=== PATIENT | female | born 1950 | race Caucasian/White ===

== ENCOUNTER 2020-08-18 10:00 | Outpatient (RCR) | payer MEDICARE, SELFPAY | END 2020-08-18 13:12 | disposition home or self-care (01) | LOC: CHSSENLIFE 10:00 | PROVIDERS: PCP Internal Medicine Geriatric Medicine; Visit Provider Psychiatry & Neurology Psychiatry | DX: F33.2 Major depressive disorder, recurrent severe without psychotic features (principal) | CPT/HCPCS: 90792; 90837; 90853; 99213; G0463 ==

== ENCOUNTER 2021-10-23 17:47 | Emergency (ER) | payer MEDICARE, SELFPAY ==
--- NOTE | ~2021-10-23 | CT_ITS ---
EXAMINATION: CT abdomen pelvis wo con DATE: 10/23/2021 18:37 INDICATION: Left flank pain. TECHNIQUE: Computed tomography (CT) of the abdomen and pelvis was performed without intravenous contr ast. Automated exposure control and iterative reconstruction technique were employed. The dose-length product was 512.91 mGy-cm. COMPARISON: None. FINDINGS: The visualized portions of the lung bases demonstrate mild atelectasis. There is a 5 mm nod ule in left lower lobe, likely benign. Calcified right lung nodules are consistent with old granuloma tous disease. No pleural effusion. The heart size is normal. No pericardial effusion. There is a smal l sliding hiatal hernia. Calcifications in the liver and spleen are consistent with old granulomatous disease. There are cysts in the liver measuring up to 12 mm. There are gallstones in the gallbladder , which is normal in size. The pancreas, adrenal glands, and kidneys are normal. There is no urolithi asis. There are no dilated loops of bowel. There are changes of appendectomy. There are no pathologic ally enlarged lymph nodes. There is no free intraperitoneal fluid. There is mild thoracolumbar spondy losis. IMPRESSION: 1. Small sliding hiatal hernia. Reviewed, dictated and finalized at location E.
--- NOTE | ~2021-10-23 | XR_ITS ---
EXAMINATION: XR chest 1V portable INDICATION: Right flank pain TECHNIQUE: Portable AP chest at 2019 hours COMPARISON: None available FINDINGS: There is mild atelectasis of the left lung base. There is no pleural effusion or pneumothor ax. The cardiomediastinal silhouette is normal. IMPRESSION: 1. Mild atelectasis of the left lung base. Reviewed, dictated and finalized at location F.
[2021-10-23 17:50] VITALS: BP 158/88; PULSE 83; RESP 20; TEMP 36.4; O2SAT 95
--- NOTE | 2021-10-23 17:55 | ECG_ITS ---
Measurements Intervals [place] Rate: 56 P: 91 [place]: 166 QRS: 50 QRSD: 97 T: 47 QT: 432 QTc: 417 Interpretive Statements SINUS BRADYCARDIA MINIMAL ST DEPRESSION [0.025+ mV ST DEPRESSION] NO PREVIOUS ECG AVAILABLE FOR COMPARISON Electronically Signed On 10-23-2021 21:16:39 CDT by Yanna Tillman MD
[2021-10-23 18:10] VITALS: BP 155/60; PULSE 61; RESP 16; TEMP 36.4; O2SAT 99
[2021-10-23 18:16] VITALS: BP 137/84; PULSE 60; RESP 12; O2SAT 97
[2021-10-23 18:16] LABS: Basophils Absolute Auto 0.1 K/mm3 (0.0-0.1); Basophils Percent Auto 0.9 % (0.2-1.2); Eosinophils Absolute Auto 0.2 K/mm3 (0-0.3); Eosinophils Percent Auto 2.4 % (0-4.4); Hematocrit 40.5 % (37.0-47.0); Hemoglobin 13.3 g/dL (12.0-15.0); Immature Granulocyte Absolute 0.02 K/mm3 (0.00-0.031); Immature Granulocyte Percent A 0.3 % (0-0.5); Lymphocytes Absolute Auto 3.26 K/mm3 (0.9-3.2); Lymphocytes Percent Auto 41.4 % (18.3-44.2); Mean Corpuscular HGB Conc 32.8 g/dl (32-36); Mean Corpuscular Hemoglobin 30.2 pg (26-34); Mean Corpuscular Volume 91.8 fl (80-100); Monocytes Absolute Auto 0.7 K/mm3 (0.1-0.6); Monocytes Percent Auto 9.4 % (2.6-8.5); Neutrophils Absolute Auto 3.6 K/mm3 (1.3-6.7); Neutrophils Percent Auto 45.6 % (45.5-73.1); Platelet Count Result 272 k/mm3 (150-375); Red Blood Count 4.41 M/mm3 (4.2-5.4); Red Cell Distribution Width 13.2 % (11.5-14.5); White Blood Count 7.9 K/mm3 (4.5-10.0)
--- NOTE | 2021-10-23 18:22 | ED.GENADULT ---
HPI - General Adult General Chief complaint: Back Pain/Injury Stated complaint: back pain Time Seen by Provider: 10/23/21 17:55 Source: RN notes reviewed History of Present Illness HPI narrative: Patient presents emergency department from home for right flank pain. Patient states pain began suddenly approximately 4:30 PM today pain is located the right flank and radiates around the right side of the abdomen. Described as sharp and stabbing. Associate with nausea vomiting. Denies any fevers or chills, chest pain, shortness of breath diarrhea or any other symptoms. Patient states she takes tramadol 3 times a day at home and did take an extra tramadol for her pain Related Data Home Medications Medication Instructions Recorded Confirmed atenolol 25 mg tablet tablet 10/23/21 cholecalciferol (vitamin D3) 25 tablet 10/23/21 mcg (1,000 unit) tablet (Vitamin D3) famotidine 20 mg tablet tablet 10/23/21 hydrochlorothiazide 25 mg tablet tablet 10/23/21 levothyroxine 50 mcg tablet tablet 10/23/21 magnesium oxide tablet 10/23/21 potassium chloride 10 mEq tablet PO 10/23/21 tablet,extended release(part/cryst) tramadol 50 mg tablet tablet 10/23/21 zolpidem 10 mg tablet tablet 10/23/21 Allergies Allergy/AdvReac Type Severity Reaction Status Date / Time codeine AdvReac Nausea and Verified 10/23/21 18:16 Vomiting morphine AdvReac Anxiety Verified 10/23/21 18:16 Review of Systems Review of Systems: Gen.: Denies fevers or chills ENT: Denies congestion Respiratory: Denies shortness of breath or cough CV: Denies chest pain or palpitations GI: See HPI denies burning, urgency, frequency or hematuria Musculoskeletal: Denies back pain or muscle pain Neuro: Denies numbness, tingling, weakness or focal weakness Skin: Denies rash Except as documented, all other systems reviewed and negative [facility] Past Medical History Medical History (Updated 10/24/21 @ 00:00 by Sary Warren) Hypertension Social History Social History (Updated 10/23/21 @ 18:23 by Nnamdi Meza DO) Smoking status: Never smoker Exam Narrative: APPEARANCE: No acute distress, nontoxic, resting in bed HEENT: Normocephalic, atraumatic, OMM RESPIRATORY: No respiratory distress, clear to auscultation bilaterally with no rhonchi wheezing or rales CARDIOVASCULAR: RRR s murmur ABDOMINAL: Soft nondistended tender palpation right upper quadrant right lower quadrant no tenderness left upper quadrant left lower quadrant no rebound or guarding, right flank tenderness Back: No midline thoracic lumbar tenderness palpation temporal patient right [place] muscles L1-3 MUSCULOSKELETAl: Moves all extremities. No clubbing, cyanosis or edema. NEURO: Awake and alert. Following commands, speech normal, no focal deficits SKIN:: Warm, dry. Normal Color PSYCHIATRIC: Normal affect/mood Course Course Emergency Course: Discussed with patient results of workup and diagnosis. Discussed need for follow-up with primary care, proper use of medication, and reasons to return to the emergency department. Patient understands and agrees to current treatment plan Vital Signs Vital signs: Vital Signs Temperature 97.6 F 10/23/21 17:50 Pulse Rate 83 10/23/21 17:50 Respiratory Rate 20 10/23/21 17:50 Blood Pressure 158/88 H 10/23/21 17:50 Pulse Oximetry 95 10/23/21 17:50 Oxygen Delivery Room Air 10/23/21 17:50 Temperature 97.6 F 10/23/21 18:10 Pulse Rate 68 10/23/21 22:51 Respiratory Rate 18 10/23/21 22:51 Blood Pressure 156/62 H 10/23/21 22:51 Pulse Oximetry 99 10/23/21 22:51 Oxygen Delivery Room Air 10/23/21 17:50 Medical Decision Making MDM Narrative Medical decision making narrative: Patient presents for onset of right flank pain. Patient states she been sleeping got up and was doing her hair when the pain started pain is located in the right flank with tenderness in the right back there is no tenderness in th
[2021-10-23] MEDS: SODIUM CHLORIDE 0.9% IV 1,000 ML 999 ML IV CONT (18:28)
[2021-10-23] MEDS: ONDANSETRON INJ 4 MG/2 ML VIAL IV PUSH ×2 (18:29→22:25)
[2021-10-23 18:30] LABS: Alanine Aminotransferase 29 U/L (6-35); Alkaline Phosphatase 78 U/L (38-126); Anion Gap 9 mmol/L (8-16); Aspartate Amino Transferase 34 U/L (14-36); Bilirubin,Total 0.2 mg/dL (0.2-1.3); Blood Urea Nitrogen 14 mg/dL (7-17); Calcium 9.7 mg/dL (8.4-10.2); Carbon Dioxide 28 mmol/L (22-30); Chloride 99 mmol/L (98-107); Estimated CRCL calculation 63 ml/min; Estimated Glomerular Filt Rate > 60; Glucose 140 mg/dL (65-110); Lipase 162 U/L (23-300); Potassium 3.8 mmol/L (3.4-5.0); Sodium 136 mmol/L (137-145)
--- NOTE | 2021-10-23 18:53 | PC.NURSE ---
Pt attempting to provide urine sample at this time
--- NOTE | 2021-10-23 19:09 | PC.NURSE ---
pt unable to provide urine sample at this time.
[2021-10-23] MEDS: HYDROmorphone HCL INJ (*CRX) 1 MG/ML SYR 0.5 MG IV PUSH (19:57)
[2021-10-23 20:00] LABS: Appearance Urine Clear (Clear); Bilirubin Urine Negative (Negative); Color Urine Yellow (Yellow); Glucose Urine UA Negative (Negative); Ketones Urine Negative (Negative); Leukocyte Esterase Ur Negative LEU/UL (Negative); Nitrate Urine Negative (Negative); Protein Urine Negative (Negative); Urobilinogen Urine 0.2 mg/dL (<2.0)
[2021-10-23 20:10] LABS: Add Urine Microscopic? YES; Blood Urine Trace (Negative)
[2021-10-23] MEDS: KETOROLAC 15 MG/ML VIAL (*BKC) IV PUSH (21:16)
[2021-10-23 21:38] LABS: Troponin I < 0.012 ng/mL (0.000-0.034)
[2021-10-23 21:53] LABS: D Dimer 0.33 ug/mL (<0.48)
[2021-10-23 22:40] LABS: Troponin I < 0.012 ng/mL (0.000-0.034)
[2021-10-23 22:51] VITALS: BP 156/62; PULSE 68; RESP 18; O2SAT 99
== END 2021-10-23 22:55 | disposition home or self-care (01) ==
PROVIDERS: Emergency Provider Emergency Medicine; PCP Internal Medicine Geriatric Medicine
DX: R10.9 Unspecified abdominal pain (principal); R00.1 Bradycardia, unspecified; I10 Essential (primary) hypertension
CPT/HCPCS: 36415; 51701; 71045; 74176; 80053; 81001; 83690; 84484; 85025; 85380; 93005; 96361; 96365; 96375; 96376; 99284; J0131; J1170; J1885; J2405; J7030

== ENCOUNTER 2021-12-27 10:00 | Outpatient (RCR) | payer MEDICARE, SELFPAY | END 2022-01-03 23:59 | disposition home or self-care (01) | LOC: CHSSENLIFE 10:00 | PROVIDERS: PCP Internal Medicine Geriatric Medicine; Visit Provider Psychiatry & Neurology Psychiatry | DX: F33.2 Major depressive disorder, recurrent severe without psychotic features (principal) | CPT/HCPCS: 90792; 90853; 99213; 99214; G0463 ==

== ENCOUNTER 2022-03-15 10:00 | Outpatient (RCR) | payer MEDICARE, SELFPAY | END 2022-03-15 15:05 | disposition home or self-care (01) | LOC: CHSSENLIFE 10:00 | PROVIDERS: PCP Internal Medicine Geriatric Medicine; Visit Provider Psychiatry & Neurology Psychiatry | DX: F33.2 Major depressive disorder, recurrent severe without psychotic features (principal) | CPT/HCPCS: 90853; 99213; G0463 ==

== ENCOUNTER 2022-07-28 10:58 | Emergency (ER) | payer MEDICARE, SELFPAY ==
[2022-07-28 11:02] VITALS: BP 134/66; PULSE 65; RESP 20; TEMP 37.1; O2SAT 100
--- NOTE | 2022-07-28 11:23 | ED.URI ---
HPI - URI/Sore Throat General Chief Complaint: Upper Respiratory Infection Stated Complaint: sore throat History of Present Illness HPI Narrative: patient presents witha sore throat , no trouble swallowing no drooling can open mouth fully Related Data Home Medications Medication Instructions Recorded Confirmed atenolol 25 mg tablet tablet 10/23/21 cholecalciferol (vitamin D3) 25 tablet 10/23/21 mcg (1,000 unit) tablet (Vitamin D3) famotidine 20 mg tablet tablet 10/23/21 hydrochlorothiazide 25 mg tablet tablet 10/23/21 levothyroxine 50 mcg tablet tablet 10/23/21 magnesium oxide tablet 10/23/21 potassium chloride 10 mEq tablet PO 10/23/21 tablet,extended release(part/cryst) tramadol 50 mg tablet tablet 10/23/21 zolpidem 10 mg tablet tablet 10/23/21 Allergies Allergy/AdvReac Type Severity Reaction Status Date / Time codeine AdvReac Nausea and Verified 10/23/21 18:16 Vomiting morphine AdvReac Anxiety Verified 10/23/21 18:16 Review of Systems Review of Systems: CONSTITUTIONAL: Denies chills, or sweats. Reports fever and generalized body aches EYES: Denies visual changes, redness, or discharge. ENT: Denies otalgia. Reports nasal congestion runny nose and sore throat CARDIOVASCULAR: Denies chest pain, palpitations, or edema. RESPIRATORY: Denies dyspnea. Reports occasional cough GASTROINTESTINAL: Denies abdominal pain, nausea, vomiting, or diarrhea. GENITOURINARY: Denies dysuria or hematuria. SKIN: Denies rash or itching. MUSCULOSKELETAL: Denies back pain, joint pain, or myalgia. Reports generalized body aches NEUROLOGIC: Denies headache, numbness, or weakness. PSYCHIATRIC: Denies anxiety or depression. [facility] Past Medical History Medical History (Updated 07/28/22 @ 11:27 by DANIEL Barney) Hypertension Social History Social History (Updated 10/23/21 @ 18:23 by Nnamdi Meza DO) Smoking status: Never smoker Comments At time of signature, agree with nursing past medical, surgical, social and family history. There is no relevant family history pertinent to the presenting complaint Exam Narrative: The patient is a well-developed, well-nourished in no acute distress. SKIN: Skin is warm and dry without erythema, swelling or exudate. There is good turgor. No tenting. HEAD: Atraumatic. Normocephalic. No temporal or scalp tenderness. EYES: Moist and bright. Sclera and conjunctivae normal. No discharge. PERRLA. Extraocular motions intact. Gross visual acuity intact. EARS: Pinna is normal shape and contour. Clear external auditory canals. TM pearly haines with good cone of light, no erythema or suppuration. Bilateral cerumen noted no gross hearing deficit. NOSE: pink, moist mucosa with good air movement. Clear rhinorrhea without nasal flaring. Septum midline. Mouth: moist mucous membranes. THROAT; mild erythema noted to posterior oropharynx with moderate postnasal drainage. Without exudate or ulceration.. Uvula midline. Normal movement of soft palate. NECK: Supple and nontender with full range of motion without discomfort. No meningeal signs. LUNGS: Equal and bilateral breath sounds without wheezes, rales or rhonchi. CHEST: The chest wall is without retractions or use of accessory muscles. HEART: Has a regular rate and rhythm without murmur, gallops, click or rub. ABDOMEN: Soft, nontender with positive active bowel sounds. No rebound tenderness. EXTREMITIES: Without cyanosis, clubbing or edema. Equal 2+ distal pulses and 2 second capillary refill noted. NEUROLOGIC: alert, active, . The patient moves all extremities with normal muscle strength. Normal muscle tone is noted. Normal coordination is noted. NO focal neurological findings noted. Course Course Level of Care: Express Care Visit Vital Signs Vital signs: Vital Signs Temperature 37.1 C 07/28/22 11:02 Pulse Rate 65 07/28/22 11:02 Respiratory Rate 20 07/28/22 11:02 Blood Pressure 134/66 07/28/22 11:02 Pulse Oxi
== END 2022-07-28 11:29 | disposition home or self-care (01) ==
PROVIDERS: Emergency Provider Nurse Practitioner Family; PCP Internal Medicine Geriatric Medicine
DX: J02.9 Acute pharyngitis, unspecified (principal); J06.9 Acute upper respiratory infection, unspecified; I10 Essential (primary) hypertension
CPT/HCPCS: 87081; 87880; 99213; G0463